=== PATIENT | male | born 2000 | race Caucasian/White ===

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

== ENCOUNTER 2021-12-06 14:47 | Emergency (ER) | payer BC | END 2021-12-06 16:16 | disposition home or self-care (01) | LOC: MW.ED 14:47 | DX: S09.90XA Unspecified injury of head, initial encounter (principal); E66.9 Obesity, unspecified; Z68.39 Body mass index [BMI] 39.0-39.9, adult; Z88.4 Allergy status to anesthetic agent; Z20.822 Contact with and (suspected) exposure to COVID-19; W00.0XXA Fall on same level due to ice and snow, initial encounter | CPT/HCPCS: 70450; 70450-26; 87804; 99284-25; U0002 ==